=== PATIENT | male | born 1970 | race Caucasian/White ===

== ENCOUNTER 2018-09-12 15:37 | Outpatient (CLI) | payer BC, SELFPAY ==
--- NOTE | 2018-09-12 15:12 | DI.CT_ITS ---
SYMPTOMS/DIAGNOSIS: NASAL MASS, J34.9 CT SCAN OF THE SINUSES: Multiple contiguous axial images of the sinuses were obtained following the uneventful administration of 100 cc's of Omnipaque 350. There are no priors for comparison. There is lobulated soft tissue centered predominantly in the right nasal cavity. There is some extension laterally into the right maxillary sinus and posteriorly into the nasopharynx. No significant enhancement is appreciated. There are mucosal retention cysts or polyps seen in the maxillary sinuses. The nodular area in the left maxillary sinus measures 1.5 cm. The nodule in the right maxillary sinus measures 0.7 cm. No fluid levels are seen in the maxillary sinuses. The frontal sinuses, ethmoid air cells and sphenoid sinuses are clear as are the mastoid air cells. There does appear to be absent a portion of the medial wall of the right maxillary sinus. This may be post surgical, however, erosive change can not be excluded. The nasal septum is midline. The left turbinates appear grossly unremarkable as is the left ostiomeatal complex. The orbits and retro-orbital soft tissues are unremarkable. The visualized intracranial structures are unremarkable. IMPRESSION: Soft tissue centered in the right nasal passage way. Primary diagnostic concern is for a nasal polyp. Retention cyst, infectious or inflammatory sinus disease can not be excluded.
[2018-09-12] MEDS: Omnipaque 350 MG/ML 100 ML BTL IJ (15:13)
== END 2018-09-12 15:57 ==
PROVIDERS: Visit Provider Otolaryngology
DX: J34.89 Other specified disorders of nose and nasal sinuses (principal); J33.0 Polyp of nasal cavity
CPT/HCPCS: 70487; J3490

== ENCOUNTER 2018-09-14 14:31 | Outpatient (REF) | payer BC, SELFPAY ==
--- NOTE | 2018-09-14 10:33 | NASALBX_PTH ---
PATIENT: DOUGLAS RANDOLPH LOC: N U#:[id number] AGE/SX: 47/M ROOM: RE09/14/[address]: Abdulaziz Sanderson MD : [id number] BED: DIS: 09/14/2018 SPEC #: [id number] RECD: 09/14/18 17:43 STATUS: LYDIA REQ #: [id number] MARIOLA: 09/14/18 10:[address]: Abdulaziz Sanderson DEPT: Surgical Specimen RECD BY: Genna Heredia ENTERED: 09/14/18 17:44 SP TYPE: NASALBX OTHR DR: None Tissues: 1 - MUCOSA, NOS Procedures: GROSS AND MICRO LEVEL 4 SPECIAL STAIN 1 Comments: [id number]
== END 2018-09-14 14:51 ==
LOC: LBN 14:31
PROVIDERS: Visit Provider Otolaryngology
DX: D10.6 Benign neoplasm of nasopharynx (principal); J31.1 Chronic nasopharyngitis
CPT/HCPCS: 88305; 88312